=== PATIENT | female | born 1970 | race Caucasian/White ===

== ENCOUNTER → 2020-03-05 08:40 | Outpatient (BNVA) | payer OTHER, SELFPAY | PROVIDERS: PCP Internal Medicine; Visit Provider Dietitian, Registered | DX: Z76.89 Persons encountering health services in other specified circumstances (principal) ==

== ENCOUNTER → 2020-03-07 10:17 | Outpatient (BNVA) | payer OTHER, SELFPAY | PROVIDERS: PCP Internal Medicine; Visit Provider Physician Assistant | DX: Z76.89 Persons encountering health services in other specified circumstances (principal) ==

== ENCOUNTER → 2020-04-09 08:02 | Outpatient (BNVA) | payer OTHER, SELFPAY | PROVIDERS: Visit Provider Physician Assistant | DX: Z76.89 Persons encountering health services in other specified circumstances (principal) ==

== ENCOUNTER 2020-05-20 08:49 | Outpatient (REF) | payer OTHER, SELFPAY | END 2020-05-20 08:50 | disposition home or self-care (01) | LOC: CF 08:49 | PROVIDERS: PCP Internal Medicine; Visit Provider Physician Assistant | DX: Z13.89 Encounter for screening for other disorder (principal) ==

== ENCOUNTER 2020-05-21 10:38 | Outpatient (REF) | payer OTHER, SELFPAY ==
[2020-05-21 11:54] LABS: MANUAL DIFF FLAG NO
[2020-05-21 11:56] LABS: Basophils Absolute Auto 0.1 X10*3/uL (0.0-0.2); Eosinophils Absolute Auto 0.3 X10*3/uL (0.0-0.4); Eosinophils Percent Auto 3.6 % (0-4); Hematocrit 43.1 % (37-47); Hemoglobin 14.2 g/dl (12.0-16.0); Imm Gran Abs Auto 0.02 X10*3/uL (0.00-0.03); Imm Gran Pct Auto 0.3 % (0.0-0.4); Lymphocytes Absolute Auto 2.5 X10*3/uL (1.2-4.9); Lymphocytes Percent Auto 35.1 % (20-40); Mean Corpuscular HGB Conc 32.9 g/dl (31.0-35.0); Mean Corpuscular Hemoglobin 30.2 pg (27.0-33.0); Mean Corpuscular Volume 91.7 fL (80-98); Mean Platelet Volume 10.4 fL (9.4-12.3); Monocytes Absolute Auto 0.5 X10*3/uL (0.1-1.2); Monocytes Percent Auto 7.4 % (2-11); Neutrophils Absolute Auto 3.7 X10*3/uL (2.0-8.3); Neutrophils Percent Auto 52.6 % (45-73); Platelet Count 320 X10*3/uL (160-400); Red Cell Distribution Width 14.5 % (11.0-16.0)
[2020-05-21 12:29] LABS: Alanine Aminotransferase 14 U/L (0-31); Albumin Level 3.9 g/dL (3.5-5.0); Alkaline Phosphatase 86 U/L (39-117); Anion Gap 15 (12-20); Aspartate Amino Transferase 16 U/L (5-31); Bilirubin Total 1.1 mg/dL (0.0-1.0); Blood Urea Nitrogen 13 mg/dL (9-16); C Reactive Protein 0.19 mg/dL (< or = 0.50); Calcium 8.8 mg/dL (8.4-10.2); Carbon Dioxide 22 mmol/L (22-29); Chloride 106 mmol/L (96-108); Cholesterol 156 mg/dL; Estimated Glomerular Filt Rate > 60; Glucose Fasting 92 mg/dL (60-99); HDL Cholesterol 61 mg/dL; Iron 157 mcg/dL (30-160); LDL Cholesterol Calculated 80 mg/dl; Percent Iron Saturation 42 % (15-50); Potassium 4.4 mmol/l (3.3-5.1); Sodium 139 mmol/L (135-145); Total Iron Binding Capacity 376 mcg/dL (228-428); Total Protein 6.4 g/dL (6.5-8.0); Triglycerides 78 mg/dL; Unsaturated Iron Binding 219 ug/dL
[2020-05-21 12:43] LABS: Estimated Average Glucose 100 mg/dL; Ferritin 20 ng/mL (10-250); Hemoglobin A1c % 5.1 %; TSH reflex Free T4 1.77 mIU/mL (0.32-4.0); Vitamin D 25-OH Total 47.4 ng/mL (>30)
[2020-05-21 12:56] LABS: Folate 14.8 ng/mL (> or = 4.0); Vitamin B12 424 pg/mL (200-900)
[2020-05-22 13:53] LABS: Insulin Level Total 6.8 uIU/mL
[2020-05-22 17:28] LABS: Calcium (PTHI) 9.3 mg/dL (8.6-10.2); PTHI 34 pg/mL (14-64)
[2020-05-24 16:02] LABS: Zinc 82 mcg/dL (60-130)
[2020-05-25 21:12] LABS: Vitamin A 59 mcg/dL (38-98)
[2020-05-26 10:23] LABS: Vitamin B1 24 nmol/L (8-30)
== END 2020-05-21 10:39 | disposition home or self-care (01) ==
LOC: HO.LAB 10:38
PROVIDERS: PCP Internal Medicine; Visit Provider Physician Assistant
DX: K91.2 Postsurgical malabsorption, not elsewhere classified (principal); E66.01 Morbid (severe) obesity due to excess calories; Z90.3 Acquired absence of stomach [part of]
CPT/HCPCS: 36415; 80053; 80061; 82306; 82607; 82728; 82746; 83036; 83525; 83540; 83970; 84425; 84443; 84590; 84630; 85025; 86140

== ENCOUNTER → 2020-06-28 11:00 | Outpatient (BNVA) | payer OTHER, SELFPAY | PROVIDERS: PCP Internal Medicine; Visit Provider Dietitian, Registered | DX: K91.2 Postsurgical malabsorption, not elsewhere classified (principal); Z90.3 Acquired absence of stomach [part of]; E66.9 Obesity, unspecified; E66.01 Morbid (severe) obesity due to excess calories ==

== ENCOUNTER → 2020-10-15 08:10 | Outpatient (BNVA) | payer OTHER, SELFPAY | PROVIDERS: PCP Internal Medicine; Visit Provider Dietitian, Registered | DX: E66.9 Obesity, unspecified (principal); Z68.32 Body mass index [BMI] 32.0-32.9, adult | CPT/HCPCS: 97803 ==